=== PATIENT | male | born 1995 | race Caucasian/White ===

== ENCOUNTER 2020-04-01 11:17 | Emergency (ER) | payer BC, SELFPAY ==
[2020-04-01 11:29] VITALS: BP 122/75; PULSE 64; RESP 16; TEMP 36.6; O2SAT 99; BMI 21.2
[2020-04-01 11:32] VITALS: RESP 15
--- NOTE | 2020-04-01 11:38 | XR_ITS ---
WS: [id number] Exam: XR wrist RT 2V 10623 Date/Time of Exam: 04/01/2020 11:40 AM Reason For Exam: wrist pain following trauma There are no fractures, soft tissue swelling, or unusual calcifications. The wrist shows normal bony alignment. There is no irregularity of the bony architecture. XR/XR wrist RT 2V [id number] IMPRESSION: Negative right wrist.
--- NOTE | 2020-04-01 11:38 | XR_ITS ---
WS: [id number] Exam: XR hand RT min 3V* [id number] Date/Time of Exam: 04/01/2020 11:40 AM Reason For Exam: punched a wall Comparison 03/25/2010. Findings: No fractures, soft tissue swelling, or unusual calcifications are noted. The hand shows normal bony alignment. There is no irregularity of the bony architecture. XR/XR hand RT min 3V* [id number] IMPRESSION: Normal right hand.
--- NOTE | 2020-04-01 11:39 | ED_ITS ---
HPI - Extremity Problem General: Chief complaint: Extremity Injury, Upper Stated complaint: R HAND INJURY Time Seen by Provider: 04/01/20 11:28 Source: patient Mode of arrival: ambulatory Limitations: no limitations History of Present Illness: HPI Narrative: Patient is a 24-year-old male with no significant past medical history who punched a wall yesterday and now has pain on the radial side of his hand as well as the wrist. He has pain on flexing the wrist. He denies any numbness or tingling. He is here to be evaluated for this. MD Complaint: extremity pain and extremity swelling Onset (ago): day(s) (1) Pain Consistency: constant Location: right and upper extremity Quality: sharp Radiation: none Relieving factors: nothing Exacerbating factors: range of motion Associated symptoms: Deny chest pain, fever(s), myalgias, rash or short of breath Review of Systems General: Reports: 10 or more systems reviewed and unremarkable except in HPI and below Const: Denies: fever(s) Eyes: Denies: change in vision or blurry vision ENMT: Denies: throat pain, enlarged tonsils, odynophagia, hoarseness, mouth pain or swelling of lips/tongue Card: Denies: chest pain Resp: Denies: dyspnea, productive cough or non-productive cough GI: Denies: abdominal pain, nausea or vomiting : Denies: flank pain, dysuria, urinary frequency, urinary urgency or urinary hesitancy Musc: Reports: extremity pain and limited range of motion; Denies: neck pain, back pain or extremity swelling Skin/Breast: Denies: rash Neuro: Denies: headache(s), numbness in extremities or weakness in extremities Endo: Denies: polyuria, polydipsia or tired all the time Physical Exam Const: COMMON NORMALS: no acute distress, average body habitus, patient oriented x3, no limitations, healthy appearing, alert and well nourished HENMT: COMMON NORMALS: normocephalic, atraumatic and moist oral mucous membranes HEAD & SCALP: normocephalic and atraumatic Neck/C-Spine: COMMON NORMALS: no meningeal signs and no JVD Resp: COMMON NORMALS: normal respiratory effort, No retractions, No use of accessory muscles, clear to auscultation bilaterally and percussion normal AUSCULTATION: clear to auscultation bilaterally PERCUSSION: percussion normal Cardio: COMMON NORMALS: no JVD, regular rate, regular rhythm, S1 normal heart sound present, S2 normal heart sound present, No gallops present (Cardio), No clicks present (Cardio), No murmurs present (Cardio), No rub (Cardio) and Peripheral pulses 2+ throughout RATE: regular rate RHYTHM: regular rhythm HEART SOUNDS: S1 normal heart sound present and S2 normal heart sound present PERIPHERAL PULSES: Peripheral pulses 2+ throughout GI: COMMON NORMALS: Normal to inspection, nondistended, normoactive bowel sounds present, Soft to palpation, non-tender, No hepatosplenomegaly present, no masses and no bruits PALPATION: Yes Soft to palpation and Yes No hepatosplenomegaly present Extremity: COMMON NORMALS: normal to inspection, full ROM, capillary refill normal, no calf tenderness and no pedal edema RIGHT UPPER EXTREMITY: Yes wrist (tenderness on the distal radius.) Right wrist: Yes ROM (pain on flexion) and Yes hand & digits (Pain on the radial side of the dorsal hand) Right hand and digits: Yes neurovascular exam (normal) Neuro: COMMON NORMALS: patient oriented x3 SENSORIUM/ORIENTATION: Yes alert MENINGEAL SIGNS: Yes no meningeal signs Skin: COMMON NORMALS: no rashes or lesions noted, no wounds, turgor normal, no jaundice, no petechiae and no mottling GENERAL SKIN EXAM: no rashes or lesions noted and turgor normal Course Reevaluation(s): Reevaluation #1: Discussed his imaging findings with him. Negative for acute findings. He is advised to ice, elevate the hand and take ibuprofen or Tylenol as needed. He voiced understanding and is in agreement with the plan. Time: 12:53 Vital Signs: Vital signs: Vital Signs Temperature 97.9 F 04/01/20 11:29 Pulse Rate 64 04/01/20 11:29 Respiratory Rate 15 04/01/20 13:00 Blood Pressure 122/75 04/01/20 11:29 Pulse Oximetry 99 04/01/20 11:29 MDM - Extremity (Nontraumatic) MDM Narrative: Medical decision making narrative: Patient with right hand and wrist pain after he punched a wall yesterday. X-rays show no fracture or dislocation. He is discharged home on conservative measures. Medical Records: Attestation: I reviewed the patient's medical records. Imaging Data^: Xray Ortho: Attestation: I personally reviewed and interpreted this imaging study as follows: Radiologist's impression: [employer] [address] XRay Report Signed Patient: Shandra Booker #: [id number] : 1995Acct#:[id number] Age/Sex: MADM Date: 04/01/20 Loc: ERRoom/Bed: Attending Dr: Ordering Provider/Ordering MD: Vern Cagle MD, [facility] [place] Date of Service: 04/01/20 Procedure(s): XR hand RT min 3V* [id number] Accession Number(s): [id number] Report Number: [id number] WS: [id number] Exam: XR hand RT min 3V* [id number] Date/Time of Exam: 04/01/2020 11:40 AM Reason For Exam: punched a wall Comparison 03/25/2010. Findings: No fractures, soft tissue swelling, or unusual calcifications are noted. The hand shows normal bony alignment. There is no irregularity of the bony architecture. XR/XR hand RT min 3V* [id number] IMPRESSION: Normal right hand. Dictated By:Scooter Henderson DO Signed By:Joshua Silverio Date/Time:04/01/20 1209 DD/ [address] [address] XRay Report Signed Patient: Shandra Booker #: [id number] : 1995Acct#:[id number] Age/Sex: MADM Date: 04/01/20 Loc: ERRoom/Bed: Attending Dr: Ordering Provider/Ordering MD: Vern Cagle MD, [facility] [place] Date of Service: 04/01/20 Procedure(s): XR wrist RT 2V 07052 Accession Number(s): [id number] Report Number: [id number] WS: [id number] Exam: XR wrist RT 2V [id number] Date/Time of Exam: 04/01/2020 11:40 AM Reason For Exam: wrist pain following trauma There are no fractures, soft tissue swelling, or unusual calcifications. The wrist shows normal bony alignment. There is no irregularity of the bony architecture. XR/XR wrist RT 2V [id number] IMPRESSION: Negative right wrist. Dictated By:Scooter Henderson DO Signed By:Joshua Silverio Date/Time:04/01/20 1207 DD/ 120 Discharge Plan Discharge Patient Disposition: Home Clinical Impression: Hand pain, not arthralgia Qualifiers: Laterality: right Qualified Code(s): M79.641 - Pain in right hand Condition: Stable Prescriptions: No Action No Known Home Medications RF: 0 Discharge Orders: Discharge ED (Routine); Ordered 04/01/20 Ordered By: Vern Cagle Referrals: Melvin Germain MD [Primary Care Provider] - 1-3 days Discharge Diet: Usual diet Discharge Activity: Increase activity as tolerated Patient Instructions: Wrist Injury (ED) Activity Restrictions/Additional Instructions: Return for any new or worsening symptoms. Follow-up with your primary care provider within 3 days. Apply ice to the affected hand and wrist for about 15 minutes at a time, at least 3 times a day. Elevate the hand to reduce swelling. Take Tylenol or ibuprofen as needed for pain. Coding Level of Care Code ED [employer] F[employer] Exam Comprehensive
[2020-04-01 13:00] VITALS: RESP 15
== END 2020-04-01 13:00 | disposition home or self-care (01) ==
PROVIDERS: Emergency Provider Family Medicine; PCP Family Medicine
DX: M79.641 Pain in right hand (principal)
CPT/HCPCS: 12345; 73100; 73130; 99281; 99282

== ENCOUNTER 2022-01-03 10:00 | Emergency (ER) | payer SELFPAY ==
[2022-01-03 10:05] VITALS: BP 126/72; PULSE 84; RESP 18; TEMP 36.7; O2SAT 98; BMI 22.0
--- NOTE | 2022-01-03 10:41 | ED.C_ITS ---
Documented by User: Maurilio Cortez DO 01/03/22 17:48 HPI - Psych General: Chief Complaint: Psychiatric Symptoms Stated Complaint: psych eval Time Seen by Provider: 01/03/22 10:21 History of Present Illness: 26-year-old male here for psych evaluation. Patient reports that he has been having thoughts of wanting to hurt himself. That has been going on for a while but getting worse. Family reports that he has been punching himself, held a knife to his throat. Patient reports he has been struggling with these thoughts for a while. There seems to be nothing new that is exacerbated it. Patient does not state an active plan but does have different thoughts and has been having self harming activity Associated symptoms: Reports depression and suicidal ideation; Deny homicidal ideation Review of Systems General: Reports: 10 or more systems reviewed and unremarkable except in HPI and below Psych: Reports: depression, suicidal ideation and other (please see hpi ); Denies: homicidal ideation Physical Exam Const: COMMON NORMALS: no acute distress, patient oriented x3 and alert HENMT: COMMON NORMALS: normocephalic, hearing grossly normal bilaterally and m oist oral mucous membranes HEAD & SCALP: normocephalic Eye: COMMON NORMALS: Equal, round and reactive pupils present and EOMs intact bilaterally PUPIL: Yes Equal, round and reactive pupils present Resp: COMMON NORMALS: normal respiratory effort, No retractions, No use of accessory muscles and clear to auscultation bilaterally AUSCULTATION: clear to auscultation bilaterally Cardio: COMMON NORMALS: regular rate and regular rhythm RATE: regular rate RHYTHM: regular rhythm GI: COMMON NORMALS: Soft to palpation and non-tender PALPATION: Yes Soft to palpation Extremity: COMMON NORMALS: full ROM, capillary refill normal and no clubbing, cyanosis or edema Neuro: COMMON NORMALS: patient oriented x3, moves all extremities, no focal motor deficits and no sensory deficits noted SENSORIUM/ORIENTATION: Yes alert Psych: APPEARANCE: Yes grossly normal ATTITUDE: Yes Withdrawn affect present SPEECH: Yes slow MOOD & AFFECT: Yes depressed mood THOUGHT CONTENT: Yes Suicidality present and No Homicidality present ATT ENTION/CONCENTRATION: Yes attention grossly intact Skin: COMMON NORMALS: no rashes or lesions noted and no wounds GENERAL SKIN EXAM: no rashes or lesions noted Course Vital Signs: Vital signs: Vital Signs Temperature 98.1 F 10/30/22 20:05 Pulse Rate 69 01/05/22 01:54 Respiratory Rate 14 01/05/22 01:54 Blood Pressure 142/70 01/05/22 01:54 Pulse Oximetry 97 01/05/22 01:54 Oxygen Delivery Me thod 01/05/22 01:00 MDM - Psych Medical Decision Making Patient's filled out a affidavit and he admitted that he has been having so me suicidal homicidal type actions and thoughts. At this time we will place him on a 96-hour hold. Patient is requesting to leave for outpatient therapy however his reports that they have tried that he does not go. At this time I believe he is probably a threat to both himself and her due to some reported anger outbursts and would benefit from inpatient therapy Lab Data : 01/03/22 10:50 01/03/22 10:50 Laboratory Results WBC 11.3 10^3/uL (4.0-10.0) H 01/03/22 10:50 RBC 5.36 10^6/uL (4.1-5.3) H 01/03/22 10:50 Hgb 15.9 g/dL (11.7-16.6) 01/03/22 10:50 Hct 48.5 % (42.0-52.0) 01/03/22 10:50 MCV 90.5 fl (80-94) 01/03/22 10:50 MCH 29.7 pg (28.0-34.0) 01/03/22 10:50 MCHC 32.8 g/dL (30.0-36.0) 01/03/22 10:50 RDW 15.0 % (12.1-15.1) 01/03/22 10:50 Plt Count 315 10^3/cmm (130-400) 01/03/22 10:50 MPV 9.6 fL (7.4-10.4) 01/03/22 10:50 Neut % (Auto) 62.6 % 01/03/22 10:50 Lymph % (Auto) 28.1 % 01/03/22 10:50 [place] % (Auto) 7.8 % 01/03/22 10:50 Eos % (Auto) 0.9 % 01/03/22 10:50 Baso % (Auto) 0.3 % 01/03/22 10:50 Neut # (Auto) 7.06 10^3/uL (1.8-7.7) 01/03/22 10:50 Lymph # (Auto) 3.2 10^3/uL (0.8-4.8) 01/03/22 10:50 [place] # (Auto) 0.9 10^3/uL (0.2-0.9) 01/03/22 10:50 Eos # (Auto) 0.1 10^3/uL (0.0-0.8) 01/03/22 10:50 Baso # (Auto) 0.0 10^3/uL (0.0-0.1) 01/03/22 10:50 Nucleated RBC % (auto) 0 % 01/03/22 10:50 Nucleated RBCs # 0.0 /100WBC 01/03/22 10:50 Sodium 134 mmol/L (136-145) L 01/03/22 10:50 Potassium 4.5 mmol/L (3.5-5.1) 01/03/22 10:50 Chloride 102 mmol/L (98-107) 01/03/22 10:50 Carbon Dioxide 23 mmol/L (22-29) 01/03/22 10:50 Anion Gap 13.5 (5-19) 01/03/22 10:50 BUN 14 mg/dL (6-20) 01/03/22 10:50 Creatinine 1.0 mg/dL (0.7-1.2) 01/03/22 10:50 GFR Calculation 89.0 mL/min (90-130) L 01/03/22 10:50 Glucose 92 mg/dL (65-115) 01/03/22 10:50 Calculated Osmolality 278 mOsm/kg (285-295) L 01/03/22 10:50 Calcium 9.7 mg/dL (8.5-10.5) 01/03/22 10:50 Total Bilirubin 0.4 mg/dL (0.15-1.2) 01/03/22 10:50 AST 16 U/L (0-40) 01/03/22 10:50 ALT 13 U/L (0-41) 01/03/22 10:50 Alkaline Phosphatase 61 U/L (40-130) 01/03/22 10:50 Total Protein 7.9 g/dL (6.6-8.7) 01/03/22 10:50 Albumin 4.2 g/dL (3.5-5.2) 01/03/22 10:50 Globulin 3.7 g/dL (1.3-4.6) 01/03/22 10:50 TSH 1.02 uIU/mL (0.27-4.20) 01/03/22 10:50 Urine Color Yellow (Yellow) 01/03/22 18:40 Urine Appearance Clear (CLEAR) 01/03/22 18:40 Urine pH 7 (5-7) 01/03/22 18:40 Ur Specific [place] 1.010 (1.005-1.030) 01/03/22 18:40 Urine Protein Neg (Negative) 01/03/22 18:40 Urine Glucose (UA) Norm (Normal) 01/03/22 18:40 Urine Ketones Negative (Negative) 01/03/22 18:40 Urine Blood Neg (Negative) 01/03/22 18:40 Urine Nitrate Negative (Negative) 01/03/22 18:40 Urine Bilirubin Neg (Negative) 01/03/22 18:40 Urine Urobilinogen Neg mg/dL (Negative) 01/03/22 18:40 Ur Leukocyte Esterase Negative (Negative) 01/03/22 18:40 Salicylates < 0.3 mg/dL (3-10) L 01/03/22 10:50 Urine Opiates Screen Negative ng/mL (Negative) 01/03/22 18:40 Acetaminophen < 5.0 ug/mL (10-30) L 01/03/22 10:50 Ur Barbiturates Screen Negative ng/mL (Negative) 01/03/22 18:40 Ur Phencyclidine Scrn Negative ng/mL (Negative) 01/03/22 18:40 Ur Amphetamines Screen Negative ng/mL (Negative) 01/03/22 18:40 U Benzodiazepines Scrn Negative ng/mL (Negative) 01/03/22 18:40 Urine Cocaine Screen Negative ng/mL (Negative) 01/03/22 18:40 U Marijuana (THC) Screen Positive ng/mL (Negative) H 01/03/22 18:40 SARS-CoV-2 Ag (Rapid) negative (Negative) 01/03/22 18:38 Discharge Plan Discharge Patient Disposition: Xfer Psychiatric Hosp Clinical Impression: Suicidal ideation, Depression Condition: Stable Referrals: Melvin Germain MD [Primary Care Provider] - Sign Out Sign Out Data: Patient Sign Out occurred on 01/04/22 at 07:08. Patient's care was discussed, and care was transferred from to Jb Prakash DO. Coding Level of Care Code ED Impact Hammer Operator for Chg Fwd Exam Comprehensive Documented by User: Dawood Mercer DO 01/04/22 04:16 HPI - Psych General: Chief Complaint: Psychiatric Symptoms Stated Complaint: psych eval Time Seen by Provider: 01/03/22 10:21 Course Vital Signs: Vital signs: Vital Signs Temperature 98.1 F 01/03/22 20:05 Pulse Rate 69 01/05/22 01:54 Respiratory Rate 14 01/05/22 01:54 Blood Pressure 142/70 01/05/22 01:54 Pulse Oximetry 97 01/05/22 01:54 Oxygen Delivery Il thod 01/05/22 01:00 [facility] - Psych Medical Decision Making Patient's filled out a affidavit and he admitted that he has been having some suicidal homicidal type actions and thoughts. At this time we will place him on a 96-hour hold. Patient is requesting to leave for outpatient therapy however his reports that they have tried that he does not go. At this time I believe he is probably a threat to both himself and her due to some reported anger outbursts and would benefit from inpatient therapy 4:14 AM: This patient was checked out to me at shift change by the previous physician. He remains medically stable. There have been no outbursts, or need for intervention. His vitals are stable. We have no beds available at this facility, and her surgeon for appropriate placement for this psychiatric patient. He remains on 96-hour hold. He will be checked out to the oncoming physician at shift change Lab Data : 01/03/22 10:50 01/03/22 10:50 Laboratory Results WBC 11.3 10^3/uL (4.0-10.0) H 01/03/22 10:50 RBC 5.36 10^6/uL (4.1-5.3) H 01/03/22 10:50 Hgb 15.9 g/dL (11.7-16.6) 01/03/22 10:50 Hct 48.5 % (42.0-52.0) 01/03/22 10:50 MCV 90.5 fl (80-94) 01/03/22 10:50 MCH 29.7 pg (28.0-34.0) 01/03/22 10:50 MCHC 32.8 g/dL (30.0-36.0) 01/03/22 10:50 RDW 15.0 % (12.1-15.1) 01/03/22 10:50 Plt Count 315 10^3/cmm (130-400) 01/03/22 10:50 MPV 9.6 fL (7.4-10.4) 01/03/22 10:50 Neut % (Auto) 62.6 % 01/03/22 10:50 Lymph % (Auto) 28.1 % 01/03/22 10:50 [place] % (Auto) 7.8 % 01/03/22 10:50 Eos % (Auto) 0.9 % 01/03/22 10:50 Baso % (Auto) 0.3 % 01/03/22 10:50 Neut # (Auto) 7.06 10^3/uL (1.8-7.7) 01/03/22 10:50 Lymph # (Auto) 3.2 10^3/uL (0.8-4.8) 01/03/22 10:50 [place] # (Auto) 0.9 10^3/uL (0.2-0.9) 01/03/22 10:50 Eos # (Auto) 0.1 10^3/uL (0.0-0.8) 01/03/22 10:50 Baso # (Auto) 0.0 10^3/uL (0.0-0.1) 01/03/22 10:50 Nucleated RBC % (auto) 0 % 01/03/22 10:50 Nucleated RBCs # 0.0 /100WBC 01/03/22 10:50 Sodium 134 mmol/L (136-145) L 01/03/22 10:50 Potassium 4.5 mmol/L (3.5-5.1) 01/03/22 10:50 Chloride 102 mmol/L (98-107) 01/03/22 10:50 Carbon Dioxide 23 mmol/L (22-29) 01/03/22 10:50 Anion Gap 13.5 (5-19) 01/03/22 10:50 BUN 14 mg/dL (6-20) 01/03/22 10:50 Creatinine 1.0 mg/dL (0.7-1.2) 01/03/22 10:50 GFR Calculation 89.0 mL/min (90-130) L 01/03/22 10:50 Glucose 92 mg/dL (65-115) 01/03/22 10:50 Calculated Osmolality 278 mOsm/kg (285-295) L 01/03/22 10:50 Calcium 9.7 mg/dL (8.5-10.5) 01/03/22 10:50 Total Bilirubin 0.4 mg/dL (0.15-1.2) 01/03/22 10:50 AST 16 U/L (0-40) 01/03/22 10:50 ALT 13 U/L (0-41) 01/03/22 10:50 Alkaline Phosphatase 61 U/L (40-130) 01/03/22 10:50 Total Protein 7.9 g/dL (6.6-8.7) 01/03/22 10:50 Albumin 4.2 g/dL (3.5-5.2) 01/03/22 10:50 Globulin 3.7 g/dL (1.3-4.6) 01/03/22 10:50 TSH 1.02 uIU/mL (0.27-4.20) 01/03/22 10:50 Urine Color Yellow (Yellow) 01/03/22 18:40 Urine Appearance Clear (CLEAR) 01/03/22 18:40 Urine pH 7 (5-7) 01/03/22 18:40 Ur Specific [place] 1.010 (1.005-1.030) 01/03/22 18:40 Urine Protein Neg (Negative) 01/03/22 18:40 Urine Glucose (UA) Norm (Normal) 01/03/22 18:40 Urine Ketones Negative (Negative) 01/03/22 18:40 Urine Blood Neg (Negative) 01/03/22 18:40 Urine Nitrate Negative (Negative) 01/03/22 18:40 Urine Bilirubin Neg (Negative) 01/03/22 18:40 Urine Urobilinogen Neg mg/dL (Negative) 01/03/22 18:40 Ur Leukocyte Esterase Negative (Negative) 01/03/22 18:40 Salicylates < 0.3 mg/dL (3-10) L 01/03/22 10:50 Urine Opiates Screen Negative ng/mL (Negative) 01/03/22 18:40 Acetaminophen < 5.0 ug/mL (10-30) L 01/03/22 10:50 Ur Barbiturates Screen Negative ng/mL (Negative) 01/03/22 18:40 Ur Phencyclidine Scrn Negative ng/mL (Negative) 01/03/22 18:40 Ur Amphetamines Screen Negative ng/mL (Negative) 01/03/22 18:40 U Benzodiazepines Scrn Negative ng/mL (Negative) 01/03/22 18:40 Urine Cocaine Screen Negative ng/mL (Negative) 01/03/22 18:40 U Marijuana (THC) Screen Positive ng/mL (Negative) H 01/03/22 18:40 SARS-CoV-2 Ag (Rapid) negative (Negative) 01/03/22 18:38 Discharge Plan Discharge Patient Disposition: Xfer Psychiatric Hosp Clinical Impression: Suicidal ideation, Depression Condition: Stable Referrals: Melvin Germain MD [Primary Care Provider] - Sign Out Sign Out Data: Patient Sign Out occurred on 01/04/22 at 07:08. Patient's care was discussed, and care was transferred from to Jb Prakash DO. Coding Level of Care Code ED Impact Hammer Operator for Chg Fwd Exam Comprehensive Documented by User: Jb Prakash DO 01/05/22 06:38 HPI - Psych General: Chief Complaint: Psychiatric Symptoms Stated Complaint: psych eval Time Seen by Provider: 01/03/22 10:21 Course Vital Signs: Vital signs: Vital Signs Temperature 98.1 F 01/03/22 20:05 Pulse Rate 69 01/05/22 01:54 Respiratory Rate 14 01/05/22 01:54 Blood Pressure 142/70 01/05/22 01:54 Pulse Oximetry 97 01/05/22 01:54 Oxygen Delivery Me thod 01/05/22 01:00 MDM - Psych Medical Decision Making Patient's filled out a affidavit and he admitted that he has been having some suicidal homicidal type actions and thoughts. At this time we will place him on a 96-hour hold. Patient is requesting to leave for outpatient therapy however his reports that they have tried that he does not go. At this time I believe he is probably a threat to both himself and her due to some reported a nger outbursts and would benefit from inpatient therapy 4:14 AM: This patient was checked out to me at shift change by the previous physician. He remains medically stable. There have been no outbursts, or need for intervention. His vitals are stable. We have no beds available at this facility, and her surgeon for appropriate placement for this psychiatric patient. He remains on 96-hour hold. He will be checked out to the oncoming physician at shift change 01/04/2022 5:35 PM Care assumed at change of shift this morning patient's has been stable no emotional outbursts or acts of self-harm throughout the shift care transferred to Dr. Bruno at change of shift at 6 PM. Lab Data : 01/03/22 10:50 01/03/22 10:50 Laboratory Results WBC 11.3 10^3/uL (4.0-10.0) H 01/03/22 10:50 RBC 5.36 10^6/uL (4.1-5.3) H 01/03/22 10:50 Hgb 15.9 g/dL (11.7-16.6) 01/03/22 10:50 Hct 48.5 % (42.0-52.0) 01/03/22 10:50 MCV 90.5 fl (80-94) 01/03/22 10:50 MCH 29.7 pg (28.0-34.0) 01/03/22 10:50 MCHC 32.8 g/dL (30.0-36.0) 01/03/22 10:50 RDW 15.0 % (12.1-15.1) 01/03/22 10:50 Plt Count 315 10^3/cmm (130-400) 01/03/22 10:50 MPV 9.6 fL (7.4-10.4) 01/03/22 10:50 Neut % (Auto) 62.6 % 01/03/22 10:50 Lymph % (Auto) 28.1 % 01/03/22 10:50 [place] % (Auto) 7.8 % 01/03/22 10:50 Eos % (Auto) 0.9 % 01/03/22 10:50 Baso % (Auto) 0.3 % 01/03/22 10:50 Neut # (Auto) 7.06 10^3/uL (1.8-7.7) 01/03/22 10:50 Lymph # (Auto) 3.2 10^3/uL (0.8-4.8) 01/03/22 10:50 [place] # (Auto) 0.9 10^3/uL (0.2-0.9) 01/03/22 10:50 Eos # (Auto) 0.1 10^3/uL (0.0-0.8) 01/03/22 10:50 Baso # (Auto) 0.0 10^3/uL (0.0-0.1) 01/03/22 10:50 Nucleated RBC % (auto) 0 % 01/03/22 10:50 Nucleated RBCs # 0.0 /100WBC 01/03/22 10:50 Sodium 134 mmol/L (136-145) L 01/03/22 10:50 Potassium 4.5 mmol/L (3.5-5.1) 01/03/22 10:50 Chloride 102 mmol/L (98-107) 01/03/22 10:50 Carbon Dioxide 23 mmol/L (22-29) 01/03/22 10:50 Anion Gap 13.5 (5-19) 01/03/22 10:50 BUN 14 mg/dL (6-20) 01/03/22 10:50 Creatinine 1.0 mg/dL (0.7-1.2) 01/03/22 10:50 GFR Calculation 89.0 mL/min (90-130) L 01/03/22 10:50 Glucose 92 mg/dL (65-115) 01/03/22 10:50 Calculated Osmolality 278 mOsm/kg (285-295) L 01/03/22 10:50 Calcium 9.7 mg/dL (8.5-10.5) 01/03/22 10:50 Total Bilirubin 0.4 mg/dL (0.15-1.2) 01/03/22 10:50 AST 16 U/L (0-40) 01/03/22 10:50 ALT 13 U/L (0-41) 01/03/22 10:50 Alkaline Phosphatase 61 U/L (40-130) 01/03/22 10:50 Total Protein 7.9 g/dL (6.6-8.7) 01/03/22 10:50 Albumin 4.2 g/dL (3.5-5.2) 01/03/22 10:50 Globulin 3.7 g/dL (1.3-4.6) 01/03/22 10:50 TSH 1.02 uIU/mL (0.27-4.20) 01/03/22 10:50 Urine Color Yellow (Yellow) 01/03/22 18:40 Urine Appearance Clear (CLEAR) 01/03/22 18:40 Urine pH 7 (5-7) 01/03/22 18:40 Ur Specific [place] 1.010 (1.005-1.030) 01/03/22 18:40 Urine Protein Neg (Negative) 01/03/22 18:40 Urine Glucose (UA) Norm (Normal) 01/03/22 18:40 Urine Ketones Negative (Negative) 01/03/22 18:40 Urine Blood Neg (Negative) 01/03/22 18:40 Urine Nitrate Negative (Negative) 01/03/22 18:40 Urine Bilirubin Neg (Negative) 01/03/22 18:40 Urine Urobilinogen Neg mg/dL (Negative) 01/03/22 18:40 Ur Leukocyte Esterase Negative (Negative) 01/03/22 18:40 Salicylates < 0.3 mg/dL (3-10) L 01/03/22 10:50 Urine Opiates Screen Negative ng/mL (Negative) 01/03/22 18:40 Acetaminophen < 5.0 ug/mL (-) L 01/03/22 10:50 Ur Barbiturates Screen Negative ng/mL (Negative) 01/03/22 18:40 Ur Phencyclidine Scrn Negative ng/mL (Negative) 01/03/22 18:40 Ur Amphetamines Screen Negative ng/mL (Negative) 01/03/22 18:40 U Benzodiazepines Scrn Negative ng/mL (Negative) 01/03/22 18:40 Urine Cocaine Screen Negative ng/mL (Negative) 01/03/22 18:40 U Marijuana (THC) Screen Positive ng/mL (Negative) H 01/03/22 18:40 SARS-CoV-2 Ag (Rapid) negative (Negative) 01/03/22 18:38 Discharge Plan Discharge Patient Disposition: Xfer Psychiatric Hosp Clinical Impression: Suicidal ideation, Depression Condition: Stable Referrals: Melvin Germain MD [Primary Care Provider] - Sign Out Sign Out Data: Patient Sign Out occurred on 01/04/22 at 07:08. Patient's care was discussed, and care was transferred from to Jb Prakash DO. Coding Level of Care Code ED Impact Hammer Operator for Chg Fwd Exam Comprehensive Documented by User: Johann Bruno MD 01/05/22 00:11 HPI - Psych General: Chief Complaint: Psychiatric Symptoms Stated Complaint: psych eval Time Seen by Provider: 01/03/22 10:21 Course Vital Signs: Vital signs: Vital Signs Temperature 98.1 F 01/03/22 20:05 Pulse Rate 69 01/05/22 01:54 Respiratory Rate 14 01/05/22 01:54 Blood Pressure 142/70 01/05/22 01:54 Pulse Oximetry 97 01/05/22 01:54 Oxygen Delivery Me thod 01/05/22 01:00 MDM - Psych Medical Decision Making Patient's filled out a affidavit and he admitted that he has been having some suicidal homicidal type actions and thoughts. At this time we will place him on a 96-hour hold. Patient is requesting to leave for outpatient therapy however his reports that they have tried that he does not go. At this time I believe he is probably a threat to both himself and her due to some reported anger outbursts and would benefit from inpatient therapy 4:14 AM: This patient was checked out to me at shift change by the previous physician. He remains medically stable. There have been no outbursts, or need for intervention. His vitals are stable. We have no beds available at this facility, and her surgeon for appropriate placement for this psychiatric patient. He remains on 96-hour hold. He will be checked out to the oncoming physician at shift change 01/04/2022 5:35 PM Care assumed at change of shift this morning patient's has been stable no emotional outbursts or acts of self-harm throughout the shift care transferred to Dr. Bruno at change of shift at 6 PM. Patient is excepted at [place] he is medically cleared will transfer there. Lab Data : 01/03/22 10:50 01/03/22 10:50 Laboratory Results WBC 11.3 10^3/uL (4.0-10.0) H 01/03/22 10:50 RBC 5.36 10^6/uL (4.1-5.3) H 01/03/22 10:50 Hgb 15.9 g/dL (11.7-16.6) 01/03/22 10:50 Hct 48.5 % (42.0-52.0) 01/03/22 10:50 MCV 90.5 fl (80-94) 01/03/22 10:50 MCH 29.7 pg (28.0-34.0) 01/03/22 10:50 MCHC 32.8 g/dL (30.0-36.0) 01/03/22 10:50 RDW 15.0 % (12.1-15.1) 01/03/22 10:50 Plt Count 315 10^3/cmm (130-400) 01/03/22 10:50 MPV 9.6 fL (7.4-10.4) 01/03/22 10:50 Neut % (Auto) 62.6 % 01/03/22 10:50 Lymph % (Auto) 28.1 % 01/03/22 10:50 [place] % (Auto) 7.8 % 01/03/22 10:50 Eos % (Auto) 0.9 % 01/03/22 10:50 Baso % (Auto) 0.3 % 01/03/22 10:50 Neut # (Auto) 7.06 10^3/uL (1.8-7.7) 01/03/22 10:50 Lymph # (Auto) 3.2 10^3/uL (0.8-4.8) 01/03/22 10:50 [place] # (Auto) 0.9 10^3/uL (0.2-0.9) 01/03/22 10:50 Eos # (Auto) 0.1 10^3/uL (0.0-0.8) 01/03/22 10:50 Baso # (Auto) 0.0 10^3/uL (0.0-0.1) 01/03/22 10:50 Nucleated RBC % (auto) 0 % 01/03/22 10:50 Nucleated RBCs # 0.0 /100WBC 01/03/22 10:50 Sodium 134 mmol/L (136-145) L 01/03/22 10:50 Potassium 4.5 mmol/L (3.5-5.1) 01/03/22 10:50 Chloride 102 mmol/L (98-107) 01/03/22 10:50 Carbon Dioxide 23 mmol/L (22-29) 01/03/22 10:50 Anion Gap 13.5 (5-19) 01/03/22 10:50 BUN 14 mg/dL (6-20) 01/03/22 10:50 Creatinine 1.0 mg/dL (0.7-1.2) 01/03/22 10:50 GFR Calculation 89.0 mL/min (90-130) L 01/03/22 10:50 Glucose 92 mg/dL (65-115) 01/03/22 10:50 Calculated Osmolality 278 mOsm/kg (285-295) L 01/03/22 10:50 Calcium 9.7 mg/dL (8.5-10.5) 01/03/22 10:50 Total Bilirubin 0.4 mg/dL (0.15-1.2) 01/03/22 10:50 AST 16 U/L (0-40) 01/03/22 10:50 ALT 13 U/L (0-41) 01/03/22 10:50 Alkaline Phosphatase 61 U/L (40-130) 01/03/22 10:50 Total Protein 7.9 g/dL (6.6-8.7) 01/03/22 10:50 Albumin 4.2 g/dL (3.5-5.2) 01/03/22 10:50 Globulin 3.7 g/dL (1.3-4.6) 01/03/22 10:50 TSH 1.02 uIU/mL (0.27-4.20) 01/03/22 10:50 Urine Color Yellow (Yellow) 01/03/22 18:40 Urine Appearance Clear (CLEAR) 01/03/22 18:40 Urine pH 7 (5-7) 01/03/22 18:40 Ur Specific [place] 1.010 (1.005-1.030) 01/03/22 18:40 Urine Protein Neg (Negative) 01/03/22 18:40 Urine Glucose (UA) Norm (Normal) 01/03/22 18:40 Urine Ketones Negative (Negative) 01/03/22 18:40 Urine Blood Neg (Negative) 01/03/22 18:40 Urine Nitrate Negative (Negative) 01/03/22 18:40 Urine Bilirubin Neg (Negative) 01/03/22 18:40 Urine Urobilinogen Neg mg/dL (Negative) 01/03/22 18:40 Ur Leukocyte Esterase Negative (Negative) 01/03/22 18:40 Salicylates < 0.3 mg/dL (3-10) L 01/03/22 10:50 Urine Opiates Screen Negative ng/mL (Negative) 01/03/22 18:40 Acetaminophen < 5.0 ug/mL (10-30) L 01/03/22 10:50 Ur Barbiturates Screen Negative ng/mL (Negative) 01/03/22 18:40 Ur Phencyclidine Scrn Negative ng/mL (Negative) 01/03/22 18:40 Ur Amphetamines Screen Negative ng/mL (Negative) 01/03/22 18:40 U Benzodiazepines Scrn Negative ng/mL (Negative) 01/03/22 18:40 Urine Cocaine Screen Negative ng/mL (Negative) 01/03/22 18:40 U Marijuana (THC) Screen Positive ng/mL (Negative) H 01/03/22 18:40 SARS-CoV-2 Ag (Rapid) negative (Negative) 01/03/22 18:38 Discharge Plan Discharge Patient Disposition: Xfer Psychiatric Hosp Clinical Impression: Suicidal ideation, Depression Condition: Stable Referrals: Melvin Germain MD [Primary Care Provider] - Sign Out Sign Out Data: Patient Sign Out occurred on 01/04/22 at 07:08. Patient's care was discussed, and care was transferred from to Jb Prakash DO. Coding Level of Care Code ED Impact Hammer Operator for Valentin Fwd Exam Comprehensive
[2022-01-03 11:02] LABS: Basophils % 0.3 %; Eosinophils # 0.1 10^3/uL (0.0-0.8); Eosinophils % 0.9 %; Hematocrit 48.5 % (42.0-52.0); Hemoglobin 15.9 g/dL (11.7-16.6); Lymphocytes # 3.2 10^3/uL (0.8-4.8); Lymphocytes % 28.1 %; Mean Corpuscular HGB Conc 32.8 g/dL (30.0-36.0); Mean Corpuscular Hemoglobin 29.7 pg (28.0-34.0); Mean Corpuscular Volume 90.5 fl (80-94); Mean Platelet Volume 9.6 fL (7.4-10.4); Monocytes # 0.9 10^3/uL (0.2-0.9); Monocytes % 7.8 %; Neutrophils # 7.06 10^3/uL (1.8-7.7); Neutrophils % 62.6 %; Nucleated Red Blood Cells % 0 %; Platelet Count 315 10^3/cmm (130-400); Red Blood Count 5.36 10^6/uL (4.1-5.3); White Blood Count 11.3 10^3/uL (4.0-10.0)
[2022-01-03 11:28] LABS: Alanine Aminotransferase 13 U/L (0-41); Albumin Level 4.2 g/dL (3.5-5.2); Alkaline Phosphatase 61 U/L (40-130); Anion Gap 13.5 (5-19); Aspartate Amino Transferase 16 U/L (0-40); Blood Urea Nitrogen 14 mg/dL (6-20); Calcium 9.7 mg/dL (8.5-10.5); Carbon Dioxide 23 mmol/L (22-29); Chloride 102 mmol/L (98-107); Globulin 3.7 g/dL (1.3-4.6); Glucose 92 mg/dL (65-115); Osmolality Calculated 278 mOsm/kg (285-295); Potassium 4.5 mmol/L (3.5-5.1); Sodium 134 mmol/L (136-145); Total Bilirubin 0.4 mg/dL (0.15-1.2); Total Protein 7.9 g/dL (6.6-8.7)
[2022-01-03 11:32] LABS: Acetaminophen < 5.0 ug/mL (10-30); Salicylate < 0.3 mg/dL (3-10)
[2022-01-03] MEDS: nicotine 14 mg Patch 1 PATCH TRANSDERMA (14:11)
[2022-01-03] MEDS: OLANZapine 5 mg TABLET PO (17:18)
--- NOTE | 2022-01-03 18:10 | ECG_ITS ---
[facility] Test Date: 2022-01-03 Pat Name: Ace Booker Department: Room: Gender: Male [employer]: : 1995 Requested By: Dawood Merritt Order Number: [id number] Tyree MD: Meet Nuñez M.D. Measurements Intervals [place] Rate: 50 P: 68 MA: 130 QRS: -19 QRSD: 86 T: 59 QT: 403 QTc: 369 Interpretive Statements SINUS BRADYCARDIA WITH SINUS ARRHYTHMIA POSSIBLE LEFT ATRIAL ENLARGEMENT [-0.1mV P-WAVE IN V1/V2] POSSIBLE RIGHT VENTRICULAR CONDUCTION DELAY [RSR (QR) IN V1/V2] SEPTAL MYOCARDIAL INFARCTION , OF INDETERMINATE AGE [40+ ms Q WAVE IN V1/V2] No previous ECG available for comparison Electronically Signed On 01-04-2022 14:51:58 CDT by Meet Nuñez M.D. [id number]
[2022-01-03 18:48] LABS: Add Urine Microscopic? NO; Charge for UA Resulting for Rev
[2022-01-03 18:58] LABS: Amphetamines Screen Urine Negative (Negative); Barbiturates Screen Urine Negative (Negative); Benzodiazepines Screen Urine Negative (Negative); Cocaine Screen Urine Negative (Negative); Opiate Screen Urine Negative (Negative); PCP Screen Urine Negative (Negative); THC Screen Urine Positive (Negative)
[2022-01-03 19:07] LABS: Bilirubin Urine Neg (Negative); Blood Urine Neg (Negative); Glucose Urine UA Norm (Normal); Ketones Urine Negative (Negative); Leukocyte Esterase Urine Negative (Negative); Nitrate Urine Negative (Negative); Protein Urine Neg (Negative); Urine Appearance Clear (CLEAR); Urine Color Yellow (Yellow); Urobilinogen Urine Neg (Negative); pH Urine 7 (5-7)
[2022-01-03 19:09] LABS: SARS Covid-2 Antigen negative (Negative)
[2022-01-03 20:05] VITALS: BP 125/54; PULSE 56; RESP 12; TEMP 36.7; O2SAT 97
[2022-01-03 20:15] LABS: Thyroid Stimulating Hormone 1.02 uIU/mL (0.27-4.20)
--- NOTE | 2022-01-03 22:31 | PC.NURSE ---
Pt in room with 1:1 sitter, per policy all items removed from room and he is in paper scrubs, VSS, no complaints at this time.
[2022-01-04 06:00] VITALS: BP 105/54; PULSE 65; RESP 14; O2SAT 97
--- NOTE | 2022-01-04 10:29 | DCPLANNER ---
Addendum entered by Jackie Raymundo 01/05/22 07:46: Patient was accepted at [facility]. Addendum entered by Maday Cameron RN 01/04/22 11:31: [facility] are declining patient d/t aggression and tendency for property damage. CM to follow. Addendum entered by Jackie Raymundo 01/04/22 11:05: [facility] - no discharges at this time - no beds Addendum entered by Jackie Raymundo 01/04/22 10:36: On Tuesday, January 04, automotive manager was asked to look for placement. This returned case inspector called the following facilities about possible placement for patient. automotive manager also followed up with facilities that patients information was faxed to. automotive manager called the following facilities: [facility] - patient is on a hold and cannot go this facility. [facility] - left message [facility] - this facility is voluntary only - patient is not voluntary [facility] - patients information has been received and is being reviewed Sushil Jenkins - patient is to [place] for this facility [facility] - call back [facility] 11:00 [facility] - information faxed [facility] - information faxed [facility] - no beds [facility] - patient declined [facility] call back at 2:00 pm [facility] [place] Original Note: automotive manager was asked to look for psych placement for patient. The following facilities were called over the weekend by the ER: [facility] - patient is on a 96 hour hold, cannot go to the facility. [facility] were told to call back in the morning [facility] - no [facility] - no beds [facility] - information was faxed [facility]ushil Jenkins - patient to [facility] - no [facility] - information faxed [facility] - [facility] beds [facility] beds [facility] - a message was left [facility] - patient declined
[2022-01-04] MEDS: nicotine 21 mg Patch 1 PATCH TRANSDERMA (15:22)
[2022-01-04] MEDS: LORazepam 2 mg Tablet PO ×2 (18:47→22:58)
[2022-01-04] MEDS: nicotine 2 mg Gum 4 MG BUCCAL (20:51)
[2022-01-05 01:00] VITALS: BP 142/70; PULSE 69; RESP 14; O2SAT 97
[2022-01-05 01:54] VITALS: BP 142/70; PULSE 69; RESP 14; O2SAT 97
== END 2022-01-05 08:59 ==
PROVIDERS: Emergency Medicine; Student in an Organized Health Care Education/Training Program; Emergency Provider Emergency Medicine; PCP Family Medicine
DX: R45.851 Suicidal ideations (principal); F32.A Depression, unspecified; Z20.822 Contact with and (suspected) exposure to COVID-19
CPT/HCPCS: 36415; 80053; 80306; 80307; 81003; 84443; 85025; 87426; 93005; 99285

== ENCOUNTER 2023-08-25 13:17 | Emergency (ER) | payer MEDICAID, SELFPAY ==
[2023-08-25] VITALS (7 sets, daily range): BP systolic 94–126; BP diastolic 50–75; PULSE 52–67; RESP 14–25; TEMP 36.6; O2SAT 96–98; BMI 21.9
[2023-08-25 13:41] LABS: Basophils % 0.4 %; Eosinophils # 0.1 10^3/uL (0.0-0.8); Eosinophils % 1.8 %; Hematocrit 41.9 % (37-53); Lymphocytes % 38.1 %; Mean Corpuscular HGB Conc 33.7 g/dL (30-55); Mean Corpuscular Hemoglobin 30.6 pg (27-33); Mean Corpuscular Volume 90.9 fl (82-101); Mean Platelet Volume 9.5 fL (7.4-10.4); Monocytes # 0.8 10^3/uL (0.2-0.9); Monocytes % 10.7 %; Neutrophils # 3.82 10^3/uL (1.8-7.7); Neutrophils % 48.7 %; Nucleated Red Blood Cells % 0 %; Platelet Count 263 10^3/cmm (157-399); Red Blood Count 4.61 10^6/uL (3.85-5.65); Red Cell Distribution Width 14.1 % (12.1-15.1); White Blood Count 7.83 10^3/uL (3.29-11.43)
[2023-08-25 14:00] LABS: Alanine Aminotransferase 11 U/L (0-41); Albumin Level 4.2 g/dL (3.5-5.2); Alkaline Phosphatase 47 U/L (40-130); Anion Gap 11.9 (5-19); Aspartate Amino Transferase 13 U/L (0-40); Blood Urea Nitrogen 12 mg/dL (6-20); Calcium 9.1 mg/dL (8.5-10.5); Carbon Dioxide 26 mmol/L (22-29); Chloride 109 mmol/L (98-107); Creatine Phosphokinase 95 U/L (39-308); Creatinine Clr Calc Pharmacy 111.4474; Globulin 2.7 g/dL (1.3-4.6); Glomerular Filtration Rate 99.8 mL/min (90-130); Glucose 106 mg/dL (65-115); Osmolality Calculated 296 mOsm/kg (285-295); Potassium 3.9 mmol/L (3.5-5.1); Sodium 143 mmol/L (136-145); Total Bilirubin 0.4 mg/dL (0.15-1.2); Total Protein 6.9 g/dL (6.6-8.7)
--- NOTE | 2023-08-25 15:48 | ED_ITS ---
Documented by User: Jb Prakash DO 08/26/23 07:01 HPI - Neuro Symptoms/Deficit 2 General: Chief Complaint: Neuro Symptoms/Deficit Stated Complaint: Dr. Block sent over possible heat stroke Time Seen by Provider: 08/25/23 15:48 Source: patient Mode of arrival: ambulatory History of Present Illness: 27-year-old male presents to the emergen cy room had an episode last night around 5 PM when he got home he got lightheaded dizzy he felt like he may have had a seizure he notices he still has a little weakness in his right hand. He went to see his doctor today was directed here because of this episode. Last night when he had this episode he thought he had heatstroke they had called When the time they arrived he was feeling well and did not want to come in. Associated symptoms: Deny chest pain Review of Systems 2 Const: Denies: fever(s) or chills Card: Denies: chest pain Resp: Denies: dyspnea GI: Denies: abdominal pain : Denies: dysuria, urinary frequency or urinary urgency Musc: Denies: neck pain or back pain Skin/Breast: Denies: rash PFSH ED 2 PFSH: Medical History Psychiatric care NIH stroke score 2 NIHSS: Level Of Consciousness - 1a: 0 Level Of Consciousness Questions - 1b: Both Correct Level Of Consciousness Commands - 1c: Both Correct Best Gaze - 2: Normal Visual Garza - 3: No Visual Loss Facial Palsy - 4: N ormal Motor Arm Right - 5: No Drift Motor Arm Left - 5: No Drift Motor Leg Right - 6: No Drift Motor Leg Left - 6: No Drift Limb Ataxia - 7: A bsent (First attempt with right hand patient missed his nose but had blood pressure cuff and oxygen sat monitor on repeat attempt normal) Sensory - 8: N ormal Best Language - 9: No Aphasia Dysarthia - 10: Normal Extinction And Inattention - 11: 0 Score: Total Score: 0 Physical Exam 2 Const: GENERAL APPEARANCE: cooperative and comfortable O RIENTATION/CONSCIOUSNESS: Yes awake, Yes oriented to person, Yes oriented to place and Yes oriented to time HENMT: COMMON NORMALS: normocephalic, atraumatic and hearing grossly normal bilaterally HEAD & SCALP: normocephalic and atraumatic Resp: COMMON NORMALS: normal respiratory effort, No retractions, No use of accessory muscles and clear to auscultation bilaterally AUSCULTATION: clear to auscultation bilaterally Cardio: COMMON NORMALS: regular rate, regular rhythm and No murmurs present (Cardio) RATE: regular rate RHYTHM: regular rhythm GI: COMMON NORMALS: Soft to palpation and No hepatosplenomegaly present A USCULTATION: Yes normoactive bowel sounds PALPATION: Yes Soft to palpation, No Tenderness to palpation present (GI), No Guarding due to palpation present (GI) and Yes No hepatosplenomegaly present Extremity: COMMON NORMALS: normal to inspection, capillary refill normal, no clubbing, cyanosis or edema, no calf tenderness and no pedal edema OTHER: Slight decreased apartment maintenance strength in the right versus left hand. Sensation normal without deficits bilaterally. Neuro: SENSORIUM/ORIENTATION: Yes oriented to person, Yes oriented to place and Yes oriented to time Skin: COMMON NORMALS: no rashes or lesions noted GENERAL SKIN EXAM: no rashes or lesions noted Course 2 Vital Signs: Vital signs: Vital Signs Temperature 97.8 F 08/25/23 13:35 Pulse Rate 64 08/25/23 21:23 Respiratory Rate 14 08/25/23 21:23 Blood Pressure 94/52 08/25/23 21:23 Pulse Oximetry 96 08/25/23 21:23 Oxygen Delivery De thod Room Air 08/25/23 18:30 MDM - Neuro Symptoms/Deficit Medical Decision Making Care signed out to Dr. Kowalski at change of shift. See final notes for diagnosis and disposition. Patient care was transitioned to pa at shift change. A CT scan was pending. CTA of the head shows no vascular issues. Patent. This was reviewed and interpreted by myself the emergency room physician. I also reviewed the radiology report.\ Assessment and plan: Radiculopathy -Decadron here in the emergency room. - Discharged home - Discussed plan with patient. Answered any questions. - Evaluation and treatment of this problem were appropriate in the emergency setting. Lab Data 08/25/23 16:19 08/25/23 16:[address] 08/25/23 16:07 IMPRESSION: No acute intracranial abnormality. ASSESSMENT: ASPECTS (Driver Stroke Program Early CT Score) is 10. Head/Neck CTA 08/25/23 17:10 IMPRESSION: No large vessel stenosis or occlusion. IMPRESSION: 1. Normal right and left extracranial internal carotid arteries by NASCET criteria. 2. Widely patent bilateral vertebral the arteries. REFERENCES: NASCET CRITERIA. The degree of stenosis in the cervical segment of the internal carotid artery is based on NASCET criteria. Normal is no stenosis. Mild is less than 50% stenosis. Moderate is 50-69% stenosis. Severe is 70% to 99% stenosis. Total occlusion is no detectable patent lumen. Laboratory Results WBC 11.06 10^3/uL (3.29-11.43) 08/25/23 16:19 RBC 4.82 10^6/uL (3.85-5.65) 08/25/23 16:19 Hgb 14.60 g/dL (11.27-16.99) 08/25/23 16:19 Hct 45.9 % (37-53) 08/25/23 16:19 MCV 95.2 fl (82-101) 08/25/23 16:19 MCH 30.3 pg (27-33) 08/25/23 16:19 MCHC 31.8 g/dL (30-55) D 08/25/23 16:19 RDW 14.2 % (12.1-15.1) 08/25/23 16:19 Plt Count 273 10^3/cmm (157-399) 08/25/23 16:19 MPV 9.6 fL (7.4-10.4) 08/25/23 16:19 Neut % (Auto) 43.0 % 08/25/23 16:19 Lymph % (Auto) 44.8 % 08/25/23 16:19 [place] % (Auto) 9.7 % 08/25/23 16:19 Eos % (Auto) 1.8 % 08/25/23 16:19 Baso % (Auto) 0.5 % 08/25/23 16:19 Neut # (Auto) 4.76 10^3/uL (1.8-7.7) 08/25/23 16:19 Lymph # (Auto) 5.0 10^3/uL (0.8-4.8) H 08/25/23 16:19 [place] # (Auto) 1.1 10^3/uL (0.2-0.9) H 08/25/23 16:19 Eos # (Auto) 0.2 10^3/uL (0.0-0.8) 08/25/23 16:19 Baso # (Auto) 0.1 10^3/uL (0.0-0.1) 08/25/23 16:19 Nucleated RBC % (auto) 0 % 08/25/23 16:19 Nucleated RBCs # 0.0 /100WBC 08/25/23 16:19 PT 13.20 SECONDS (12.1-14.9) 08/25/23 16:19 INR 0.98 (0.8-1.2) 08/25/23 16:19 APTT 26.6 SECONDS (23.9-36.7) 08/25/23 16:19 Sodium 140 mmol/L (136-145) 08/25/23 16:19 Potassium 4.2 mmol/L (3.5-5.1) 08/25/23 16:19 Chloride 107 mmol/L (98-107) 08/25/23 16:19 Carbon Dioxide 23 mmol/L (22-29) 08/25/23 16:19 Anion Gap 14.2 (5-19) 08/25/23 16:19 BUN 13 mg/dL (6-20) 08/25/23 16:19 Creatinine 0.9 mg/dL (0.7-1.2) 08/25/23 16:19 GFR Calculation 99.8 mL/min (90-130) 08/25/23 16:19 Glucose 107 mg/dL (65-115) 08/25/23 16:19 POC Glucose 105 mg/dL (70-110) 08/25/23 16:09 Calculated Osmolality 291 mOsm/kg (285-295) 08/25/23 16:19 Calcium 9.1 mg/dL (8.5-10.5) 08/25/23 16:19 Total Bilirubin 0.3 mg/dL (0.15-1.2) 08/25/23 16:19 AST 16 U/L (0-40) 08/25/23 16:19 ALT 12 U/L (0-41) 08/25/23 16:19 Alkaline Phosphatase 50 U/L (40-130) 08/25/23 16:19 Creatine Kinase 95 U/L (39-308) 08/25/23 13:34 Total Protein 7.3 g/dL (6.6-8.7) 08/25/23 16:19 Albumin 4.3 g/dL (3.5-5.2) 08/25/23 16:19 Globulin 3.0 g/dL (1.3-4.6) 08/25/23 16:19 Urine Color Yellow (Yellow) 08/25/23 17:48 Urine Appearance Clear (CLEAR) 08/25/23 17:48 Urine pH 7 (5-7) 08/25/23 17:48 Ur Specific [place] 1.005 (1.005-1.030) 08/25/23 17:48 Urine Protein Neg (Negative) 08/25/23 17:48 Urine Glucose (UA) Norm (Normal) 08/25/23 17:48 Urine Ketones Negative (Negative) 08/25/23 17:48 Urine Blood Neg (Negative) 08/25/23 17:48 Urine Nitrate Negative (Negative) 08/25/23 17:48 Urine Bilirubin Neg (Negative) 08/25/23 17:48 Urine Urobilinogen Norm mg/dL (Negative) 08/25/23 17:48 Ur Leukocyte Esterase Negative (Negative) 08/25/23 17:48 Urine Opiates Screen Negative ng/mL (Negative) 08/25/23 17:48 Ur Barbiturates Screen Negative ng/mL (Negative) 08/25/23 17:48 Ur Phencyclidine Scrn Negative ng/mL (Negative) 08/25/23 17:48 Ur Amphetamines Screen Negative ng/mL (Negative) 08/25/23 17:48 U Benzodiazepines Scrn Negative ng/mL (Negative) 08/25/23 17:48 Urine Cocaine Screen Negative ng/mL (Negative) 08/25/23 17:48 U Marijuana (THC) Screen Positive ng/mL (Negative) H 08/25/23 17:48 Discharge Plan Discharge Patient Disposition: Home Clinical Impression: Radiculopathy Qualifiers: Spinal region: unspecified Qualified Code(s): M54.10 - Radiculopathy, site unspecified Condition: Stable Prescriptions: New dexamethasone 6 mg tablet 6 mg PO DAILY 5 Days Qty: 5 0RF No Action naltrexone 50 mg tablet 50 mg PO DAILY Qty: 30 2RF bupropion HCl [Wellbutrin XL] 300 mg tablet extended release 24 hr 300 mg PO QAM Qty: 30 2RF Discharge Orders: Discharge ED (Routine); Ordered 08/25/23 Ordered By: Rosa Kowalski Referrals: Ashish Fernandes MD [Primary Care Provider] - 1-3 days Discharge Diet: Usual diet Discharge Activity: Increase activity as tolerated Patient Instructions: Opioid Safety, Pain Management Activity Restrictions/Additional Instructions: Thank you for choosing [facility] for your healthcare needs today. Please realize this is an emergency room and that we are providing you with a medical screening exam and this may not be complete and all inclusive of all the testing and or work up that you may need to determine your ailment or severity of your illness. You have been screened and evaluated and felt safe for discharge. Health conditions do change or evolve sometimes and as such it is important that you follow up with your Primary Doctor to be re checked, 3-5 days is a general good time frame for follow up. You are always welcome to return to the ED for re assessment if your symptoms are worsening or you have new concerns Coding Level of Care Code ED Computer Numerical Control Operator for Chg Fwd Documented by User: Rosa Kowalski MD 08/25/23 21:09 HPI - Neuro Symptoms/Deficit 2 General: Chief Complaint: Neuro Symptoms/Deficit Stated Complaint: Dr. Block sent over possible heat stroke Time Seen by Provider: 08/25/23 15:48 Review of Systems 2 Narrative: Constitutional symptoms: Negative except as documented in HPI. Skin symptoms: Negative except as documented in HPI. Eye symptoms: Negative except as documented in HPI. ENMT symptoms: Negative except as documented in HPI. Respiratory symptoms: Negative except as documented in HPI. Cardiovascular symptoms: Negative except as documented in HPI. Gastrointestinal symptoms: Negative except as documented in HPI. Genitourinary symptoms: Negative except as documented in HPI. Musculoskeletal symptoms: Negative except as documented in HPI. Neurologic symptoms: Negative except as documented in HPI. Psychiatric symptoms: Negative except as documented in HPI. Endocrine symptoms: Negative except as documented in HPI. PFSH ED 2 PFSH: Medical History Psychiatric care NIH stroke score 2 Score: Total Score: 0 Physical Exam 2 Narrative: EXAM NARRATIVE: General: Alert, no acute distress. Skin: Warm, dry. Head: Normocephalic, atraumatic. Neck: Supple, trachea midline. Eye: Extraocular movements are intact. Ears, nose, mouth and throat: mucosa moist. Cardiovascular: Regular, Normal peripheral perfusion. Respiratory: Lungs are clear to auscultation, respirations are non-labored, breath sounds are equal, Symmetrical chest wall expansion. Gastrointestinal: Soft, Nontender, Non distended, Normal bowel sounds. Musculoskeletal: Normal ROM, no deformity. Neurological: Alert and oriented, patient has some decreased apartment maintenance strength in the right hand Psychiatric: Cooperative, appropriate mood & affect. Course 2 Vital Signs: Vital signs: Vital Signs Temperature 97.8 F 08/25/23 13:35 Pulse Rate 64 08/25/23 21:23 Respiratory Rate 14 08/25/23 21:23 Blood Pressure 94/52 08/25/23 21:23 Pulse Oximetry 96 08/25/23 21:23 Oxygen Delivery Me thod Room Air 08/25/23 18:30 MDM - Neuro Symptoms/Deficit Medical Decision Making Patient care was transitioned to pa at shift change. A CT scan was pending. CTA of the head shows no vascular issues. Patent. This was reviewed and interpreted by myself the emergency room physician. I also reviewed the radiology report.\ Assessment and plan: Radiculopathy -Decadron here in the emergency room. - Discharged home - Discussed plan with patient. Answered any questions. - Evaluation and treatment of this problem were appropriate in the emergency setting. Lab Data 08/25/23 16:19 08/25/23 16:[address] 08/25/23 16:07 IMPRESSION: No acute intracranial abnormality. ASSESSMENT: ASPECTS (Driver Stroke Program Early CT Score) is 10. Head/Neck CTA 08/25/23 17:10 IMPRESSION: No large vessel stenosis or occlusion. IMPRESSION: 1. Normal right and left extracranial internal carotid arteries by NASCET criteria. 2. Widely patent bilateral vertebral the arteries. REFERENCES: NASCET CRITERIA. The degree of stenosis in the cervical segment of the internal carotid artery is based on NASCET criteria. Normal is no stenosis. Mild is less than 50% stenosis. Moderate is 50-69% stenosis. Severe is 70% to 99% stenosis. Total occlusion is no detectable patent lumen. Laboratory Results WBC 11.06 10^3/uL (3.29-11.43) 08/25/23 16:19 RBC 4.82 10^6/uL (3.85-5.65) 08/25/23 16:19 Hgb 14.60 g/dL (11.27-16.99) 08/25/23 16:19 Hct 45.9 % (37-53) 08/25/23 16:19 MCV 95.2 fl (82-101) 08/25/23 16:19 MCH 30.3 pg (27-33) 08/25/23 16:19 MCHC 31.8 g/dL (30-55) D 08/25/23 16:19 RDW 14.2 % (12.1-15.1) 08/25/23 16:19 Plt Count 273 10^3/cmm (157-399) 08/25/23 16:19 MPV 9.6 fL (7.4-10.4) 08/25/23 16:19 Neut % (Auto) 43.0 % 08/25/23 16:19 Lymph % (Auto) 44.8 % 08/25/23 16:19 [place] % (Auto) 9.7 % 08/25/23 16:19 Eos % (Auto) 1.8 % 08/25/23 16:19 Baso % (Auto) 0.5 % 08/25/23 16:19 Neut # (Auto) 4.76 10^3/uL (1.8-7.7) 08/25/23 16:19 Lymph # (Auto) 5.0 10^3/uL (0.8-4.8) H 08/25/23 16:19 [place] # (Auto) 1.1 10^3/uL (0.2-0.9) H 08/25/23 16:19 Eos # (Auto) 0.2 10^3/uL (0.0-0.8) 08/25/23 16:19 Baso # (Auto) 0.1 10^3/uL (0.0-0.1) 08/25/23 16:19 Nucleated RBC % (auto) 0 % 08/25/23 16:19 Nucleated RBCs # 0.0 /100WBC 08/25/23 16:19 PT 13.20 SECONDS (12.1-14.9) 08/25/23 16:19 INR 0.98 (0.8-1.2) 08/25/23 16:19 APTT 26.6 SECONDS (23.9-36.7) 08/25/23 16:19 Sodium 140 mmol/L (136-145) 08/25/23 16:19 Potassium 4.2 mmol/L (3.5-5.1) 08/25/23 16:19 Chloride 107 mmol/L (98-107) 08/25/23 16:19 Carbon Dioxide 23 mmol/L (22-29) 08/25/23 16:19 Anion Gap 14.2 (5-19) 08/25/23 16:19 BUN 13 mg/dL (6-20) 08/25/23 16:19 Creatinine 0.9 mg/dL (0.7-1.2) 08/25/23 16:19 GFR Calculation 99.8 mL/min (90-130) 08/25/23 16:19 Glucose 107 mg/dL (65-115) 08/25/23 16:19 POC Glucose 105 mg/dL (70-110) 08/25/23 16:09 Calculated Osmolality 291 mOsm/kg (285-295) 08/25/23 16:19 Calcium 9.1 mg/dL (8.5-10.5) 08/25/23 16:19 Total Bilirubin 0.3 mg/dL (0.15-1.2) 08/25/23 16:19 AST 16 U/L (0-40) 08/25/23 16:19 ALT 12 U/L (0-41) 08/25/23 16:19 Alkaline Phosphatase 50 U/L (40-130) 08/25/23 16:19 Creatine Kinase 95 U/L (39-308) 08/25/23 13:34 Total Protein 7.3 g/dL (6.6-8.7) 08/25/23 16:19 Albumin 4.3 g/dL (3.5-5.2) 08/25/23 16:19 Globulin 3.0 g/dL (1.3-4.6) 08/25/23 16:19 Urine Color Yellow (Yellow) 08/25/23 17:48 Urine Appearance Clear (CLEAR) 08/25/23 17:48 Urine pH 7 (5-7) 08/25/23 17:48 Ur Specific [place] 1.005 (1.005-1.030) 08/25/23 17:48 Urine Protein Neg (Negative) 08/25/23 17:48 Urine Glucose (UA) Norm (Normal) 08/25/23 17:48 Urine Ketones Negative (Negative) 08/25/23 17:48 Urine Blood Neg (Negative) 08/25/23 17:48 Urine Nitrate Negative (Negative) 08/25/23 17:48 Urine Bilirubin Neg (Negative) 08/25/23 17:48 Urine Urobilinogen Norm mg/dL (Negative) 08/25/23 17:48 Ur Leukocyte Esterase Negative (Negative) 08/25/23 17:48 Urine Opiates Screen Negative ng/mL (Negative) 08/25/23 17:48 Ur Barbiturates Screen Negative ng/mL (Negative) 08/25/23 17:48 Ur Phencyclidine Scrn Negative ng/mL (Negative) 08/25/23 17:48 Ur Amphetamines Screen Negative ng/mL (Negative) 08/25/23 17:48 U Benzodiazepines Scrn Negative ng/mL (Negative) 08/25/23 17:48 Urine Cocaine Screen Negative ng/mL (Negative) 08/25/23 17:48 U Marijuana (THC) Screen Positive ng/mL (Negative) H 08/25/23 17:48 All radiology interpretation(s) finalized by discharge Discharge Plan Discharge Patient Disposition: Home Clinical Impression: Radiculopathy Qualifiers: Spinal region: unspecified Qualified Code(s): M54.10 - Radiculopathy, site unspecified Condition: Stable Prescriptions: New dexamethasone 6 mg tablet 6 mg PO DAILY 5 Days Qty: 5 0RF No Action naltrexone 50 mg tablet 50 mg PO DAILY Qty: 30 2RF bupropion HCl [Wellbutrin XL] 300 mg tablet extended release 24 hr 300 mg PO QAM Qty: 30 2RF Discharge Orders: Discharge ED (Routine); Ordered 08/25/23 Ordered By: Rosa Kowalski Referrals: Ashish Fernandes MD [Primary Care Provider] - 1-3 days Discharge Diet: Usual diet Discharge Activity: Increase activity as tolerated Patient Instructions: Opioid Safety, Pain Management Activity Restrictions/Additional Instructions: Thank you for choosing [facility] for your healthcare needs today. Please realize this is an emergency room and that we are providing you with a medical screening exam and this may not be complete and all inclusive of all the testing and or work up that you may need to determine your ailment or severity of your illness. You have been screened and evaluated and felt safe for discharge. Health conditions do change or evolve sometimes and as such it is important that you follow up with your Primary Doctor to be re checked, 3-5 days is a general good time frame for follow up. You are always welcome to return to the ED for re assessment if your symptoms are worsening or you have new concerns Coding Level of Care Code ED Computer Numerical Control Operator for Valentin Claros
[2023-08-25] MEDS: sodium chloride 0.9% 1,000 ML 999 ML IV (16:03)
--- NOTE | 2023-08-25 16:07 | CTR_ITS ---
PROCEDURE INFORMATION: Exam: CT Head Without Contrast Exam date and time: 08/25/2023 4:11 PM Age: 27 years old Clinical indication: Stroke-like symptoms; Other: See below; Additional info: Symptoms of acute stroke TECHNIQUE: Imaging protocol: Computed tomography of the head without contrast. Radiation optimization: All CT scans at this facility use at least one of these dose optimization techniques: automated exposure control; mA and/or kV adjustment per patient size (includes targeted exams where dose is matched to clinical indication); or iterative reconstruction. Other technique: STROKE PROTOCOL was implemented. COMPARISON: No relevant prior studies available. RADIATION DOSE METRICS: Total DLP (mGy-cm): 1071 FINDINGS: Brain: Normal. No hemorrhage. Unremarkable white matter. No mass effect. Cerebral ventricles: No ventriculomegaly. Paranasal sinuses: Visualized sinuses are unremarkable. No fluid levels. Mastoid air cells: Visualized mastoid air cells are well aerated. Bones: Unremarkable. No acute fracture. Soft tissues: Unremarkable. CT/CT head thrombolytic 02116 IMPRESSION: No acute intracranial abnormality. ASSESSMENT: ASPECTS ([place] Stroke Program Early CT Score) is 10.
[2023-08-25 16:12] LABS: Glucose Point of Care 105 mg/dL (70-110)
--- NOTE | 2023-08-25 16:21 | ECG_ITS ---
[facility] Test Date: 2023-08-25 Pat Name: Ace Booker Department: Room: Gender: Male Sales Operations Analyst: : 1995 Requested By: Jb Graham Order Number: [id number] Tyree MD: Meet Nuñez M.D. Measurements Intervals [place] Rate: 52 P: 72 CA: 126 QRS: 12 QRSD: 106 T: 61 QT: 416 QTc: 387 Interpretive Statements SINUS BRADYCARDIA Compared to ECG 01/03/2022 19:12:46 Sinus arrhythmia no longer present Myocardial infarct finding no longer present Electronically Signed On 08-26-2023 13:38:28 CDT by Meet Nuñez M.D. [email or web address]
[2023-08-25 16:26] LABS: Basophils # 0.1 10^3/uL (0.0-0.1); Basophils % 0.5 %; Eosinophils # 0.2 10^3/uL (0.0-0.8); Eosinophils % 1.8 %; Hematocrit 45.9 % (37-53); Lymphocytes % 44.8 %; Mean Corpuscular HGB Conc 31.8 g/dL (30-55); Mean Corpuscular Hemoglobin 30.3 pg (27-33); Mean Corpuscular Volume 95.2 fl (82-101); Mean Platelet Volume 9.6 fL (7.4-10.4); Monocytes # 1.1 10^3/uL (0.2-0.9); Monocytes % 9.7 %; Neutrophils # 4.76 10^3/uL (1.8-7.7); Nucleated Red Blood Cells % 0 %; Platelet Count 273 10^3/cmm (157-399); Red Blood Count 4.82 10^6/uL (3.85-5.65); Red Cell Distribution Width 14.2 % (12.1-15.1); White Blood Count 11.06 10^3/uL (3.29-11.43)
[2023-08-25 16:43] LABS: Alanine Aminotransferase 12 U/L (0-41); Albumin Level 4.3 g/dL (3.5-5.2); Alkaline Phosphatase 50 U/L (40-130); Aspartate Amino Transferase 16 U/L (0-40); Blood Urea Nitrogen 13 mg/dL (6-20); Calcium 9.1 mg/dL (8.5-10.5); Carbon Dioxide 23 mmol/L (22-29); Chloride 107 mmol/L (98-107); Creatinine Clr Calc Pharmacy 111.4474; Glomerular Filtration Rate 99.8 mL/min (90-130); Glucose 107 mg/dL (65-115); Osmolality Calculated 291 mOsm/kg (285-295); Sodium 140 mmol/L (136-145); Total Bilirubin 0.3 mg/dL (0.15-1.2); Total Protein 7.3 g/dL (6.6-8.7)
[2023-08-25 16:45] LABS: INR 0.98 (0.8-1.2)
[2023-08-25 16:46] LABS: Partial Thromboplastin Time 26.6 SECONDS (23.9-36.7)
[2023-08-25 17:06] LABS: Anion Gap 14.2 (5-19); Potassium 4.2 mmol/L (3.5-5.1)
--- NOTE | 2023-08-25 17:10 | CTR_ITS ---
PROCEDURE INFORMATION: Exam: CTA Head With Contrast, Arteriography Exam date and time: 08/25/2023 5:21 PM Age: 27 years old Clinical indication: Stroke-like symptoms; RT upper extremity weakness; Additional info: R hand wekaness TECHNIQUE: Imaging protocol: Computed tomographic angiography of the head with contrast. Exam focused on the arteries. 3D rendering (Not supervised by radiologist): MIP and/or 3D reconstructed images were created by the technologist. Radiation optimization: All CT scans at this facility use at least one of these dose optimization techniques: automated exposure control; mA and/or kV adjustment per patient size (includes targeted exams where dose is matched to clinical indication); or iterative reconstruction. Contrast material: OMNI 350; Contrast volume: 100 ml; Contrast route: INTRAVENOUS (IV); COMPARISON: CT head thrombolytic [id number] 25/08/2023 16:11 RADIATION DOSE METRICS: Total DLP (mGy-cm): 543 FINDINGS: ANTERIOR CIRCULATION: Right internal carotid artery: Intracranial segment is patent with no significant stenosis. No aneurysm. Right middle cerebral artery: No occlusion or significant stenosis. No aneurysm. Right anterior cerebral artery: No occlusion or significant stenosis. No aneurysm. Left internal carotid artery: Intracranial segment is patent with no significant stenosis. No aneurysm. Left middle cerebral artery: No occlusion or significant stenosis. No aneurysm. Left anterior cerebral artery: No occlusion or significant stenosis. No aneurysm. POSTERIOR CIRCULATION: Right vertebral artery: No occlusion or significant stenosis. No aneurysm. Left vertebral artery: No occlusion or significant stenosis. No aneurysm. Basilar artery: No occlusion or significant stenosis. No aneurysm. Right posterior cerebral artery: No occlusion or significant stenosis. No aneurysm. Left posterior cerebral artery: No occlusion or significant stenosis. No aneurysm. Brain: No definite mass, mass effect, or midline shift. Cerebral ventricles: No ventriculomegaly. Bones/joints: Unremarkable. No acute fracture. Soft tissues: Unremarkable. PROCEDURE INFORMATION: Exam: CTA Neck With Contrast Exam date and time: 08/25/2023 5:21 PM Age: 27 years old Clinical indication: Stroke-like symptoms; RT upper extremity weakness; Additional info: R hand wekaness TECHNIQUE: Imaging protocol: Computed tomographic angiography of the neck with contrast. Exam focused on the cervical segments of the vasculature. 3D rendering (Not supervised by radiologist): MIP and/or 3D reconstructed images were created by the technologist. Radiation optimization: All CT scans at this facility use at least one of these dose optimization techniques: automated exposure control; mA and/or kV adjustment per patient size (includes targeted exams where dose is matched to clinical indication); or iterative reconstruction. Contrast material: OMNI 350; Contrast volume: 100 ml; Contrast route: INTRAVENOUS (IV); COMPARISON: CT head thrombolytic [id number] 25/08/2023 16:11 RADIATION DOSE METRICS: Total DLP (mGy-cm): 543 FINDINGS: Right common carotid artery: No significant stenosis. No dissection or occlusion. Right internal carotid artery: No significant stenosis of the extracranial segment. No dissection or occlusion. Right external carotid artery: No occlusion or significant stenosis of the origin. Left common carotid artery: No significant stenosis. No dissection or occlusion. Left internal carotid artery: No significant stenosis of the extracranial segment. No dissection or occlusion. Left external carotid artery: No occlusion or significant stenosis of the origin. Right vertebral artery: No significant stenosis. No dissection or occlusion. Left vertebral artery: No significant stenosis. No dissection or occlusion. Soft tissues: No significant soft tissue swelling. Bones/joints: No acute fracture. CT/CT angio headneck* [id number] IMPRESSION: No large vessel stenosis or occlusion. IMPRESSION: 1. Normal right and left extracranial internal carotid arteries by NASCET criteria. 2. Widely patent bilateral vertebral the arteries. REFERENCES: NASCET CRITERIA. The degree of stenosis in the cervical segment of the internal carotid artery is based on NASCET criteria. Normal is no stenosis. Mild is less than 50% stenosis. Moderate is 50-69% stenosis. Severe is 70% to 99% stenosis. Total occlusion is no detectable patent lumen.
[2023-08-25] MEDS: iohexol 350 mg/mL 500 mL Btl (per mL) IV (17:31)
[2023-08-25] MEDS: LORazepam 2 mg/mL INJ 10 mL MDV 1 MG IVP ×2 (17:34→20:11)
[2023-08-25 17:54] LABS: Add Urine Microscopic? NO; Charge for UA Resulting for Rev
[2023-08-25 18:04] LABS: Bilirubin Urine Neg (Negative); Blood Urine Neg (Negative); Glucose Urine UA Norm (Normal); Ketones Urine Negative (Negative); Leukocyte Esterase Urine Negative (Negative); Nitrate Urine Negative (Negative); Protein Urine Neg (Negative); Specific Gravity, Urine 1.005 (1.005-1.030); Urine Appearance Clear (CLEAR); Urine Color Yellow (Yellow); Urobilinogen Urine Norm (Negative); pH Urine 7 (5-7)
[2023-08-25 18:10] LABS: Amphetamines Screen Urine Negative (Negative); Barbiturates Screen Urine Negative (Negative); Benzodiazepines Screen Urine Negative (Negative); Cocaine Screen Urine Negative (Negative); Opiate Screen Urine Negative (Negative); PCP Screen Urine Negative (Negative); THC Screen Urine Positive (Negative)
--- NOTE | 2023-08-25 18:50 | PC.NURSE ---
Assumed care from Genoveva VERDUGO at this time.
[2023-08-25] MEDS: dexamethasone 10 mg/mL INJ IVP (21:13)
== END 2023-08-25 21:11 | disposition home or self-care (01) ==
PROVIDERS: Emergency Medicine; Family Medicine; Emergency Provider Emergency Medicine; PCP Family Medicine
DX: M54.10 Radiculopathy, site unspecified (principal)
CPT/HCPCS: 36415; 36416; 70450; 70496; 70498; 80053; 80306; 81003; 82550; 82962; 85025; 85610; 85730; 93005; 96361; 96374; 96375; 96376; 99285; J1100; J2060; J7030; Q9967

== ENCOUNTER 2023-11-05 18:59 | Emergency (ER) | payer MEDICAID, SELFPAY ==
[2023-11-05 19:02] VITALS: BP 132/74; PULSE 68; RESP 20; TEMP 36.6; O2SAT 92; BMI 23.5
--- NOTE | 2023-11-05 19:18 | ECG_ITS ---
[facility] Test Date: 2023-11-05 Pat Name: Ace Booker Department: Room: Gender: Male Manager Of Hospital: : 1995 Requested By: Lani Ash Order Number: [id number] Clements MD: Serjio Mendez M.D. Measurements Intervals [place] Rate: 66 P: 67 MA: 141 QRS: -25 QRSD: 103 T: 56 QT: 383 QTc: 403 Interpretive Statements SINUS RHYTHM BORDERLINE LEFT AXIS DEVIATION [QRS AXIS < -20] LEFT VENTRICULAR HYPERTROPHY AND ST-T CHANGE [VOLTAGE CRITERIA PLUS ST/T ABNORMALITY] Compared to ECG 08/25/2023 16:21:35 Left ventricular hypertrophy now present ST (T wave) deviation now present Sinus bradycardia no longer present Electronically Signed On 11-05-2023 21:53:42 CDT by Serjio Mendez M.D. [id number]
[2023-11-05 19:33] LABS: Basophils % 0.4 %; Eosinophils # 0.2 10^3/uL (0.0-0.8); Eosinophils % 1.9 %; Hematocrit 44.2 % (37-53); Lymphocytes # 4.4 10^3/uL (0.8-4.8); Lymphocytes % 47.8 %; Mean Corpuscular HGB Conc 33.5 g/dL (30-55); Mean Corpuscular Hemoglobin 30.8 pg (27-33); Mean Corpuscular Volume 91.9 fl (82-101); Mean Platelet Volume 9.6 fL (7.4-10.4); Monocytes # 0.7 10^3/uL (0.2-0.9); Monocytes % 7.7 %; Neutrophils # 3.84 10^3/uL (1.8-7.7); Neutrophils % 41.9 %; Nucleated Red Blood Cells % 0 %; Platelet Count 284 10^3/cmm (157-399); Red Blood Count 4.81 10^6/uL (3.85-5.65); Red Cell Distribution Width 13.4 % (12.1-15.1); White Blood Count 9.15 10^3/uL (3.29-11.43)
[2023-11-05 20:00] LABS: Alanine Aminotransferase 16 U/L (0-41); Albumin Level 4.6 g/dL (3.5-5.2); Alcohol Level 161 mg/dL (0-10); Alkaline Phosphatase 55 U/L (40-130); Anion Gap 17.8 (5-19); Aspartate Amino Transferase 22 U/L (0-40); Blood Urea Nitrogen 11 mg/dL (6-20); Calcium 8.8 mg/dL (8.5-10.5); Carbon Dioxide 22 mmol/L (22-29); Chloride 108 mmol/L (98-107); Creatinine Clr Calc Pharmacy 113.5234; Globulin 2.6 g/dL (1.3-4.6); Glomerular Filtration Rate 99.1 mL/min (90-130); Glucose 99 mg/dL (65-115); Osmolality Calculated 297 mOsm/kg (285-295); Potassium 3.8 mmol/L (3.5-5.1); Sodium 144 mmol/L (136-145); Thyroid Stimulating Hormone 2.16 uIU/mL (0.27-4.20); Total Bilirubin 0.2 mg/dL (0.15-1.2); Total Protein 7.2 g/dL (6.6-8.7)
[2023-11-05 20:01] LABS: Acetaminophen < 5.0 ug/mL (10-30); Salicylate < 0.3 mg/dL (3-10)
--- NOTE | 2023-11-05 20:23 | W.ED.PSYCHS ---
HPI - Psych General: Chief Complaint: Psychiatric Symptoms Stated Complaint: MHE Time Seen by Provider: 11/05/23 19:00 History of Present Illness: 28-year-old male who states he just does not want to be alive any longer . Patient denies a definite plan. He does not have any significant trigger that caused him to feel this way. He states he has had suicidal thoughts and been admitted in the past for the same. He denies homicidal ideations. He does admit to drinking alcohol today. He denies drug use. He states his last psychiatric hospitalization was about 1-1/2 years ago. He denies auditory or visual hallucinations. Patient states he does not have a plan to harm himself. He states he had been involved in an argument with his father earlier in the day. He states he has no intent to harm himself. He is followed by Dr. Cruz at the [facility] here and was recently stopped from Wellbutrin because it was not helping. He is supposed to be starting Abilify. Associated symptoms: Reports depression and suicidal ideation; Deny homicidal ideation Related Data Previous Rx's Medication Instructions Recorded duloxetine 30 mg capsule,delayed 30 mg PO DAILY #30 caps 09/02/23 release (Cymbalta) duloxetine 60 mg capsule,delayed 60 mg PO DAILY #30 caps 09/02/23 release (Cymbalta) trazodone 50 mg tablet 100 mg (2 x 50 mg) PO .HS PRN 09/02/23 insomnia #60 tabs Allergies Allergy/AdvReac Type Severity Reaction Status Date / Time No Known Allergies Allergy Verified 08/25/23 13:49 Review of Systems General: Reports: 10 or more systems reviewed and unremarkable except in HPI and below Psych: Reports: anxiety, depression, mood swings, irritability and suicidal ideation; Denies: homicidal ideation FOR[facility] PFSH: Medical History Psychiatric care Social History Smoking and tobacco/nicotine status: unknown if used tobacco/nicotine Physical Exam Const: GENERAL APPEARANCE: anxious and disheveled ORIENTATION/CONSCIOUSNESS: Yes awake, Yes oriented to person, Yes oriented to place and Yes oriented to time HENMT: COMMON NORMALS: normocephalic, atraumatic and moist oral mucous membranes HEAD & SCALP: normocephalic and atraumatic FACE & SINUS: normal facial exam Eye: COMMON NORMALS: Equal, round and reactive pupils present and EOMs intact bilaterally PUPIL: Yes Equal, round and reactive pupils present Neck/C-Spine: COMMON NORMALS: full ROM GENERAL: No tracheal deviation Resp: COMMON NORMALS: normal respiratory effort and clear to auscultation bilaterally AUSCULTATION: clear to auscultation bilaterally Cardio: COMMON NORMALS: regular rate and regular rhythm RATE: regular rate RHYTHM: regular rhythm GI: COMMON NORMALS: Normal to inspection, nondistended, normoactive bowel sounds present, Soft to palpation and non-tender PALPATION: Yes Soft to palpation Extremity: COMMON NORMALS: normal to inspection Neuro: SENSORIUM/ORIENTATION: Yes oriented to person, Yes oriented to place and Yes oriented to time Psych: COMMON NORMALS: Normal thought process present and denies homicidal ideation; negative for normal affect and negative for denies suicidal ideation APPEARANCE: Yes unkempt ATTITUDE: Yes agitated ACTIVITY/MOTOR BEHAVIOR: No appropriate eye contact SPEECH: Yes Pressured speech present MOOD & AFFECT: Yes anxious and Yes Labile affect present THOUGHT PROCESS: Normal thought process present THOUGHT CONTENT: Yes Suicidality present and No Homicidality present MEMORY/COGNITION: Yes memory grossly intact INSIGHT: Limited insight present (Psych) JUDGEMENT: Poor judgement present (Psych) Face to Face: Restrn/Seclusion Events leading up to initiation: Verbalizing threat to self or others Evaluation of patient's immediate situation: Alert and oriented Patient reaction since intervention applied: De-escalation/no displays of violent/destructive behavior Recent labs reviewed: Yes Review of medications: Yes Patient's current medical/behavioral condition: No new concerns since last ROS Need for restraint or seclusion is: No longer present Attending notified: Attending completed assessment Course Reevaluation(s): Reevaluation #1: Patient remains agitated and uncooperative. Still will not discuss what led up to him becoming angry and suicidal this evening. States he is no longer suicidal but will not discuss details and will not contract for safety. Will give the patient Zyprexa Zydis 10 mg p.o. Still feel the patient needs psychiatric admission Time: 20:46 Reevaluation #2: I have spoken with the patient's on the phone both in the patient's presence. The patient will contract for safety. He refuses to go home with her though. She says she could keep him safe. Will plan to discharge the patient if he can find a ride home. At this time, the patient is calm, denies suicidal ideations. He contracts for safety. Time: 21:36 Vital Signs: Vital signs: Vital Signs Temperature 97.8 F 11/05/23 19:02 Pulse Rate 68 11/05/23 19:02 Respiratory Rate 20 H 11/05/23 19:02 Blood Pressure 132/74 11/05/23 19:02 Pulse Oximetry 92 11/05/23 19:02 MDM - Psych Medical Decision Making 28-year-old male who comes in agitated not cooperative, voicing suicidal ideations. He will not discuss the details as to what led up to him feeling this way. He also will not discuss a plan. He has a history of previous psychiatric admissions for suicide thoughts in the past. Will obtain labs and EKG for medical clearance. Patient's been given Ativan and Zyprexa. He is much more calm and cooperative. He denies suicidal thoughts at this time. He will contract for safety. He refuses to go home with his . He is requesting to be discharged and states he will find some place to go. Patient is oriented x 3, clear speech and appropriate thought process at this time. Do not feel he meets admission criteria for psychiatric placement. At this time, the patient stated he called the ambulance just to get out of his house because he was arguing with his and he just wanted to get away from her and he denies that he was having thoughts of harming himself Lab Data 11/05/23 19:26 11/05/23 19:26 Laboratory Results WBC 9.15 10^3/uL (3.29-11.43) 11/05/23 19: RBC 4.81 10^6/uL (3.85-5.65) 11/05/23 19: Hgb 14.80 g/dL (11.27-16.99) 11/05/23 19: Hct 44.2 % (37-53) 11/05/23 19: MCV 91.9 fl (82-101) 11/05/23 19: MCH 30.8 pg (27-33) 11/05/23 19: MCHC 33.5 g/dL (30-55) 11/05/23 19: RDW 13.4 % (12.1-15.1) 11/05/23 19: Plt Count 284 10^3/cmm (157-399) 11/05/23 19: MPV 9.6 fL (7.4-10.4) 11/05/23 19: Neut % (Auto) 41.9 % 11/05/23 19: Lymph % (Auto) 47.8 % 11/05/23: Larue % (Auto) 7.7 % 11/05/23: Eos % (Auto) 1.9 % 11/05/23: Baso % (Auto) 0.4 % 11/05/23: Neut # (Auto) 3.84 10^3/uL (1.8-7.7) 11/05/23: Lymph # (Auto) 4.4 10^3/uL (0.8-4.8) 11/05/23 19: Larue # (Auto) 0.7 10^3/uL (0.2-0.9) 11/05/23: Eos # (Auto) 0.2 10^3/uL (0.0-0.8) 11/05/23 19: Baso # (Auto) 0.0 10^3/uL (0.0-0.1) 11/05/23 19: Nucleated RBC % (auto) 0 % 11/05/23: Nucleated RBCs # 0.0 /100WBC 11/05/23 19:26 Sodium 144 mmol/L (136-145) 11/05/23 19:26 Potassium 3.8 mmol/L (3.5-5.1) 11/05/23 19: Chloride 108 mmol/L (98-107) H 11/05/23 19:26 Carbon Dioxide 22 mmol/L (22-29) 11/05/23 19: Anion Gap 17.8 (5-19) 11/05/23 19:26 BUN 11 mg/dL (6-20) 11/05/23 19:26 Creatinine 0.9 mg/dL (0.7-1.2) 11/05/23 19:26 GFR Calculation 99.1 mL/min (90-130) 11/05/23 19:26 Glucose 99 mg/dL (65-115) 11/05/23 19:26 Calculated Osmolality 297 mOsm/kg (285-295) H 11/05/23 19:26 Calcium 8.8 mg/dL (8.5-10.5) 11/05/23 19:26 Total Bilirubin 0.2 mg/dL (0.15-1.2) 11/05/23 19:26 AST 22 U/L (0-40) 11/05/23 19:26 ALT 16 U/L (0-41) 11/05/23 19:26 Alkaline Phosphatase 55 U/L (40-130) 11/05/23 19:26 Total Protein 7.2 g/dL (6.6-8.7) 11/05/23 19:26 Albumin 4.6 g/dL (3.5-5.2) 11/05/23 19:26 Globulin 2.6 g/dL (1.3-4.6) 11/05/23 19:26 TSH 2.16 uIU/mL (0.27-4.20) 11/05/23 19:26 Salicylates < 0.3 mg/dL (3-10) L 11/05/23 19:26 Acetaminophen < 5.0 ug/mL (10-30) L 11/05/23 19:26 Ethyl Alcohol 161 mg/dL (0-10) H 11/05/23 19:26 No radiology studies performed this visit Discharge Plan Discharge Patient Disposition: Home Clinical Impression: Alcohol intoxication, Agitation Condition: Stable Prescriptions: No Action duloxetine [Cymbalta] 30 mg capsule,delayed release(DR/EC) 30 mg PO DAILY Qty: 30 0RF duloxetine [Cymbalta] 60 mg capsule,delayed release(DR/EC) 60 mg PO DAILY Qty: 30 2RF Rx Instructions: Start after 1 month on 30 mg. trazodone 50 mg tablet 100 mg PO .HS PRN (Reason: insomnia) Qty: 60 2RF Discharge Orders: Discharge ED (Routine); Ordered 11/05/23 Ordered By: Lani Ash Referrals: Ashish Fernandes MD [Primary Care Provider] - Patient Instructions: Depression, Abuse of Alcohol (DC), Opioid Safety, Pain Management Activity Restrictions/Additional Instructions: Stop abusing alcohol. Take your medications as prescribed. Follow-up Tuesday with your psychiatrist You need to go stay with someone. Return if you are symptoms are worsening or you are having any recurrent thoughts of self-harm Coding Level of Care Code ED [facility] [employer] Tender for Valentin Claros
[2023-11-05] MEDS: LORazepam 1 mg Tablet PO (20:29)
[2023-11-05] MEDS: OLANZapine 10 mg ODT PO (22:48)
[2023-11-05 22:51] VITALS: BP 128/76; PULSE 64; RESP 14; O2SAT 94
[2023-11-05 22:52] VITALS: BP 128/76; PULSE 64; RESP 14; TEMP 36.6; O2SAT 94
== END 2023-11-05 22:49 | disposition home or self-care (01) ==
PROVIDERS: Emergency Provider Emergency Medicine; PCP Family Medicine
DX: F10.129 Alcohol abuse with intoxication, unspecified (principal); Y90.6 Blood alcohol level of 120-199 mg/100 ml; R45.1 Restlessness and agitation
CPT/HCPCS: 36415; 80053; 80307; 84443; 85025; 93005; 99284

== ENCOUNTER 2023-11-09 19:06 | Emergency (ER) | payer MEDICAID, SELFPAY ==
--- NOTE | 2023-11-09 19:08 | XRR_ITS ---
PROCEDURE INFORMATION: Exam: XR Left Hand Exam date and time: 11/09/2023 7:11 PM Age: 28 years old Clinical indication: Injury or trauma; Other: [place]; Other: Cut to second digit TECHNIQUE: Imaging protocol: Radiologic exam of the left hand. Views: 3 or more views. COMPARISON: No relevant prior studies available. FINDINGS: Bones/joints: Alignment is normal. Joint spaces are preserved. No acute fracture. 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 Soft tissues: There is irregularity of the soft tissues at the tip of the 2nd finger. No radiodense foreign body. XR/XR hand LT min 3V* [id number] IMPRESSION: 1. No acute fracture. 2. Soft tissue injury in the distal 2nd finger. No visible foreign body.
[2023-11-09 19:31] VITALS: BP 115/72; PULSE 86; RESP 18; TEMP 36.6; O2SAT 98; BMI 22.5
== END 2023-11-09 20:36 | disposition left against medical advice (07) ==
PROVIDERS: Emergency Provider Family Medicine; PCP Family Medicine
DX: Z53.21 Procedure and treatment not carried out due to patient leaving prior to being seen by health care provider (principal)
CPT/HCPCS: 73130

== ENCOUNTER → 2024-01-16 09:58 | Outpatient (BNVA) | payer MEDICAID, SELFPAY | PROVIDERS: PCP Family Medicine; Referring Provider Family Medicine; Visit Provider Psychiatry & Neurology Neurology | DX: R56.9 Unspecified convulsions (principal); R55 Syncope and collapse | CPT/HCPCS: 36415; 81241; 82306; 82607; 82746; 83036; 83090; 83921; 85025; 85210; 85300; 85303; 85306; 86146; 86147; 99203; 99204 ==

== ENCOUNTER 2024-02-07 08:04 | Outpatient (CLI) | payer MEDICAID, SELFPAY ==
--- NOTE | 2024-02-07 08:00 | MR_ITS ---
WS: [id number] MRI BRAIN WITH AND WITHOUT CONTRAST HISTORY: R56.9 - Unspecified convulsions COMPARISON: CT head 08/25/2023 TECHNIQUE: Multiplanar imaging performed through the brain with MultiHance 14 ml's IV. No acute infarcts are seen. Kay-white matter differentiation is well preserved. No susceptibility artifacts or prior lacunar infarcts. Ventricles and extra-axial spaces are normal. Normal hippocampal formations. Clivus and pituitary gland are normal. Visualized posterior fossa and brainstem are also normal. Postcontrast images are negative for masses or vascular malformations. Dominant distal RIGHT vertebra l artery. Hypoplastic or absent distal LEFT vertebral artery. Dural venous sinuses are normal. Paranasal sinuses: Marked mucoperiosteal thickening in the maxillary sinuses. No air-fluid levels. Mastoid air cells: Normal. Calvarium and scalp: Normal. MR/MR head wo/w con [id number] IMPRESSION: 1. No acute infarct or hemorrhage. 2. No signal abnormalities within the kay or white matter. 3. Normal hippocampal formations. 4. Marked mucoperiosteal thickening in the maxillary sinuses.
[2024-02-07] MEDS: gadobenate dimeglumine 20 mL vial IV (08:44)
== END 2024-02-07 08:05 | disposition home or self-care (01) ==
PROVIDERS: PCP Family Medicine; Visit Provider Psychiatry & Neurology Neurology
DX: R56.9 Unspecified convulsions (principal); J32.0 Chronic maxillary sinusitis
CPT/HCPCS: 70553

== ENCOUNTER 2024-02-10 06:11 | Outpatient (CLI) | payer MEDICAID, SELFPAY ==
--- NOTE | 2024-02-10 06:15 | USCV_ITS ---
Ace Booker Age: 28 Gender: M : 1995 Exam Date: 02/10/2024 06:25 Ordering Phys: Ze Grider MD Technologist: Tony Zhou Exam Location: [facility] [place] Indication: unspecified convulsions BP: 109 / 59 HR: 73 Rhythm: Sinus Technical Quality: Adequate MEASUREMENTS (Male / Female) Normal Values 2D ECHO LV Diastolic Diameter PLAX 4.5 cm 4.2 - 5.9 / 3.9 - 5.3 cm IVS Diastolic Thickness 0.9 cm 0.6 - 1.0 / 0.6 - 0.9 cm IVS Systolic Thickness 1.6 cm LVPW Diastolic Thickness 1.3 cm 0.6 - 1.0 / 0.6 - 0.9 cm LVPW Systolic Thickness 1.7 cm LVOT Diameter 2.0 cm LV Ejection Fraction 2D Teich 70.1 % LV Ejection Fraction MOD 4C 70.0 % LV Ejection Fraction MOD 2C 75.2 % LV Ejection Fraction 2C AL 75.0 % LA Diameter 3.0 cm RA Systolic Volume 4C AL 41.8 ml RA Systolic Volume 4C MOD 39.8 ml LA Sys Volume AL 46.0 cm cubed LA Sys Volume Index AL 25.5 cm cubed/m squared Aorta at Sinotubular Diameter 1.7 cm IVC Diameter 2.0 cm M-MODE LA Ao Ratio MM 1.4 AV Cusp Separation MM 1.9 cm DOPPLER AV Peak Velocity 157.0 cm/s LVOT Peak Velocity 98.0 cm/s AV Area Cont Eq vti 2.2 cm squared AV Area Cont Eq pk 2.0 cm squared MV Peak Velocity 141.0 cm/s MV Area PHT 4.0 cm squared Mitral E to A Ratio 1.9 TV Peak Velocity 264.3 cm/s TR Peak Velocity 263.5 cm/s TR Peak Gradient 27.8 mmHg TR Mean Velocity 219.0 cm/s TR Mean Gradient 20.1 mmHg TR Velocity Time Integral 76.5 cm PV Peak Velocity 128.0 cm/s RV Ejection Time 0.3 s FINDINGS Left Ventricle Normal left ventricular size, systolic function and wall thickness, with no regional wall motion abnormalities. Left ventricular ejection fraction is estimated at 55 %. Normal left ventricular filling pressure. Right Ventricle The right ventricle is normal in size and function. Right Atrium The right atrium is normal in size. Left Atrium The left atrium is normal in size. Mitral Valve Structurally normal mitral valve. Trace mitral valve regurgitation. Aortic Valve Structurally normal trileaflet aortic valve. Trace aortic valve regurgitation. Tricuspid Valve Structurally normal tricuspid valve. Mild tricuspid valve regurgitation. Pulmonic Valve Structurally normal pulmonic valve without significant stenosis. There is no pulmonic regurgitation. Pericardium Normal pericardium without effusion. Aorta Normal ascending aorta dimension. IVC The inferior vena cava appears normal. CONCLUSIONS Normal left ventricular size, systolic function and wall thickness, with no regional wall motion abnormalities. Left ventricular ejection fraction is estimated at 55 %. Normal left ventricular filling pressure. Structurally normal tricuspid valve. Mild tricuspid valve regurgitation. There is no pericardial effusion. Right atrial pressure is around 5 mm of mercury. Shanice Allen MD (Electronically Signed) Final Date: 11 February 2024 01:17 S
== END 2024-02-10 06:12 | disposition home or self-care (01) ==
LOC: RAD 06:12
PROVIDERS: PCP Family Medicine; Visit Provider Psychiatry & Neurology Neurology
DX: R56.9 Unspecified convulsions (principal)
CPT/HCPCS: 93306